=== PATIENT | male | born 1985 | race Caucasian/White ===

== ENCOUNTER 2019-03-22 15:02 | Emergency (ER) | payer SELFPAY ==
[2019-03-22 15:57] LABS: CHLORIDE,CL 103 mmol/L (98-107); SODIUM,NA 140 mmol/L (136-145)
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
== END 2019-03-22 15:44 ==
LOC: LL.ED 15:02
DX: T75.1XXA Unspecified effects of drowning and nonfatal submersion, initial encounter (principal); T17.908A Unspecified foreign body in respiratory tract, part unspecified causing other injury, initial encounter; G44.89 Other headache syndrome; R10.11 Right upper quadrant pain; R07.81 Pleurodynia
CPT/HCPCS: 36415; 70450; 72125; 80053; 85025; 99285; G0390; G0480